=== PATIENT | male | born 1990 | race Caucasian/White ===

== ENCOUNTER 2018-02-12 08:23 | Emergency (ER) | payer MEDICAID, OTHER ==
[~2018-02-12] VITALS: Ht 177.8 cm; Wt 71.6 kg
[2018-02-12] MEDS ORDERED: KETOROLAC 30 MG/1 ML ONE (08:55)
[2018-02-12] MEDS ORDERED: KETOROLAC 30 MG/1 ML IM ONE (09:00)
[2018-02-12 10:00] VITALS: BP 93/67
== END 2018-02-12 10:44 | disposition home or self-care (01) ==
LOC: ED 10:40
DX: G89.11 Acute pain due to trauma (principal); G89.29 Other chronic pain; M79.661 Pain in right lower leg; M79.671 Pain in right foot; M54.5 Low back pain; X58.XXXA Exposure to other specified factors, initial encounter; Y93.39 Activity, other involving climbing, rappelling and jumping off; Y99.8 Other external cause status; Y92.89 Other specified places as the place of occurrence of the external cause
CPT/HCPCS: 72110; 73630; 96372; 99284; J1885

== ENCOUNTER 2018-05-02 16:50 | Emergency (ER) | payer MEDICAID, OTHER ==
[~2018-05-02] VITALS: Ht 177.8 cm; Wt 71.0 kg
[2018-05-02 16:54] VITALS: BP 123/88
== END 2018-05-02 17:47 | disposition home or self-care (01) ==
LOC: ED 17:15
DX: S00.83XA Contusion of other part of head, initial encounter (principal); Y04.8XXA Assault by other bodily force, initial encounter; Y93.89 Activity, other specified; Y92.89 Other specified places as the place of occurrence of the external cause; Y99.8 Other external cause status
CPT/HCPCS: 70100; 99283